=== PATIENT | female | born 1980 | race African-American/Black ===

== ENCOUNTER 2018-06-11 07:12 | Emergency (ER) | payer MEDICAID, OTHER ==
[~2018-06-11] VITALS: Ht 162.6 cm; Wt 91.0 kg
[2018-06-11 07:29] VITALS: BP 117/84
== END 2018-06-11 10:47 | disposition home or self-care (01) ==
LOC: ER 07:25
DX: S52.202A Unspecified fracture of shaft of left ulna, initial encounter for closed fracture (principal); Z98.890 Other specified postprocedural states; W51.XXXA Accidental striking against or bumped into by another person, initial encounter; Y93.79 Activity, other specified sports and athletics; Y92.89 Other specified places as the place of occurrence of the external cause
CPT/HCPCS: 29105; 73090; 81025; 99284; A4565

== ENCOUNTER 2018-07-23 09:14 | Emergency (ER) | payer OTHER ==
[~2018-07-23] VITALS: Ht 162.6 cm; Wt 89.0 kg
[2018-07-23 11:51] LABS: CLARITY URINE CLOUDY (CLEAR); COLOR URINE YELLOW (YELLOW); KETONES URINE TRACE (NEGATIVE); LEUKOCYTE ESTERASE URINE 1+ (NEGATIVE); NITRITE URINE NEGATIVE (NEGATIVE); OCCULT BLOOD URINE 3+ (NEGATIVE); PROTEIN URINE 1+ (NEGATIVE); SPECIFIC GRAVITY URINE 1.025 (1.005-1.030); UROBILINOGEN URINE 0.2 E.U./dL (0.2-1.0)
[2018-07-23 13:37] LABS: BASOPHILS % 0.8 % (0.0-2.0); CHLORIDE 108 mEq/L (98-107); EOSINOPHILS % 1.6 % (0.0-5.0); HEMATOCRIT. 39.9 % (36.0-48.0); HEMOGLOBIN. 12.9 g/dL (12.0-16.0); LYMPHOCYTES % 36.5 % (20.0-50.0); MEAN CORPUSCULAR HEMOGLOBIN 25.5 pg (28.0-32.0); MEAN CORPUSCULAR VOLUME 78.6 fL (81.0-99.0); MEAN PLATELET VOLUME 8.9 fl (7.4-10.4); MONOCYTES % 7.7 % (2.0-8.0); NEUTROPHILS % 53.4 % (40.0-76.0); PLATELET 329 x1000/uL (130-400); RED BLOOD CELL COUNT 5.08 mill/uL (4.2-5.4); RED CELL DISTRIBUTION WIDTH 15.4 % (11.6-14.6)
[2018-07-23 13:49] LABS: B-HCG QUANTITATIVE < 1 mIU/mL (<3)
[2018-07-23 14:00] VITALS: BP 124/74
== END 2018-07-23 14:26 | disposition home or self-care (01) ==
LOC: ER 13:13
DX: O03.9 Complete or unspecified spontaneous abortion without complication (principal); A59.01 Trichomonal vulvovaginitis; R03.0 Elevated blood-pressure reading, without diagnosis of hypertension; O23.41 Unspecified infection of urinary tract in pregnancy, first trimester; Z3A.00 Weeks of gestation of pregnancy not specified; Z98.890 Other specified postprocedural states
CPT/HCPCS: 36415; 76830; 76856; 80053; 81003; 81025; 84702; 85025; 86850; 86900; 86901; 99285; Z7610